=== PATIENT | female | born 1955 | race Caucasian/White ===

== ENCOUNTER → 2018-10-20 16:05 | Outpatient (CLI) | payer OTHER, SELFPAY ==
[2018-10-25 14:49] LABS: Anti-Scleroderma-70 AB 0.5 AI (0.0-0.9)
== END ==
PROVIDERS: Family Provider Internal Medicine Rheumatology; PCP Internal Medicine Rheumatology; Referring Provider Family Medicine; Visit Provider Family Medicine
DX: R76.0 Raised antibody titer (principal)
CPT/HCPCS: 36415; 86235

== ENCOUNTER → 2020-08-28 14:41 | Outpatient (CLI) | payer OTHER, SELFPAY ==
--- NOTE | 2020-08-28 14:49 | CT_ITS ---
STUDY: CT MAXILLOFACIAL SINUSES REASON FOR EXAM: Female, 64 years old. FACIAL PAIN RADIATION DOSAGE (If Supplied By Facility): CTDIvol = ( 33.06 ) mGy, DLP = ( 796.66 ) mGycm TECHNIQUE: The patient was scanned in a multi detector CT scanner. High resolution axial imaging was performed without the administration of intravenous contrast material. Sagittal and coronal images were reconstructed. Individualized dose optimization techniques were used for this CT. COMPARISON: None. FINDINGS: FRONTAL SINUSES: Normal aeration, without mucosal inflammatory disease. ETHMOIDAL SINUSES: Normal aeration, without mucosal inflammatory disease. MAXILLARY SINUSES: Mild degree of nodular mucosal thickening at the base of the right maxillary sinus. Minimal mucosal thickening along the medial wall of the left maxillary sinus. SPHENOIDAL SINUSES: Normal aeration, without mucosal inflammatory disease. There is patency of the bilateral maxillary infundibuli with normal uncinate processes, ethmoid bullae, and hiatus semilunaris. Normal bilateral middle turbinates. There is hypertrophy of the left inferior nasal turbinate. Normal midline nasal septum. There is patency of the bilateral nasal airways. The visualized osseous structures are normal. The visualized bilateral orbital contents are normal. CT/Sinus/Facial Bone IMPRESSION: Mild mucosal thickening of the maxillary sinuses bilaterally as described. Hypertrophy of the inferior turbinate in the left nasal fossa. Electronically Signed: John Gabriel MD at 9:59 EDT , Service support ,
== END ==
PROVIDERS: PCP Family Medicine; Referring Provider Otolaryngology; Visit Provider Otolaryngology
DX: J32.9 Chronic sinusitis, unspecified (principal); R51.9 Headache, unspecified
CPT/HCPCS: 70486

== ENCOUNTER 2020-12-21 08:03 | Day surgery (SDC) | payer OTHER, SELFPAY ==
[2020-12-21] VITALS (7 sets, daily range): BP systolic 123–159; BP diastolic 71–89; PULSE 75–100; RESP 16–18; TEMP 36.1–37; O2SAT 95–100; BMI 30.6
--- NOTE | 2020-12-21 08:38 | HP.PCM_ITS ---
History and Physical Date of Admission: 12/21/20 Intake Vital Signs 12/12/20 09:47 12/12/20 09:51 Height 5 ft 1.25 in Weight: 172 lb 2 oz BMI 32.2 30.0 BP 164/83 H Blood Pressure Location Rt brachial Position Sitting Respiration 18 Pulse 78 Pulse Source NIBP Temp 97.8 F Temp Source Temporal Pulse Oximetry (%) 98 Oxygen Delivery Method room air Intake Visit Reasons: SEEN DEC 2019/DIDN'T GET C-SCOPE BECAUSE OF COVID Chief Complaint: GERD/ screening Platform Operations Director Required: No Is patient in pain?: No Allergies No Known Allergies Allergy (Verified 12/12/20 09:48) Medications furosemide 20 mg tablet 20 mg PO DAILY tab 12/29/19 [History Confirmed 12/12/20] multivitamin 1 tab PO DAILY 12/29/19 [History Confirmed 12/12/20] omeprazole 40 mg capsule,delayed release cap PO 12/29/19 [History Confirmed 12/12/20] vitamin B complex 1 cap PO DAILY 12/29/19 [History Confirmed 12/12/20] bupropion HCl 150 mg 24 hr tablet, extended release 150 mg PO DAILY tab 12/12/20 [History Confirmed 12/12/20] caffeine 200 mg tablet 200 mg PO DAILY tab 12/12/20 [History Confirmed 12/12/20] hawthorn 500 mg capsule mg PO 12/12/20 [History Confirmed 12/12/20] loratadine 10 mg tablet 10 mg PO DAILY 12/12/20 [History Confirmed 12/12/20] triamcinolone acetonide 55 mcg nasal spray aerosol 2 spray INTRANASAL DAILY 12/12/20 [History Confirmed 12/12/20] Is last menstrual period known: No Post menopausal: Yes Patient : No REPLACED BY [facility] Medical History (Updated 12/12/20 @ 09:[address] Zechariah Norman MD) Back pain Depression GERD (gastroesophageal reflux disease) Headache HTN (hypertension) Osteoarthritis Osteopenia Scoliosis Surgical History History of arthroplasty of left ankle History of bladder repair surgery History of nasal septoplasty History of tubal ligation Family History Father No problems noted. Social History Smoking Status: Never smoker HPI HPI HPI: FIDENCIO LOPEZ, is a 65 F who presents to the office today for EGD and colonoscopy. The patient reports that she has been having some food sticking in the lower chest. She says this happen occasionally with meat. She has longstanding GERD and is on a PPI. Patient is also in need of screening colonoscopy. ROS General General: No weight change, appetite, fatigue, colon cancer, breast cancer or weakness HEENT HEENT: Yes difficulty swallowing; No eye injury, eye surgery, swollen glands or hoarseness Endo Endocrine: No thyroid disease, diabetes mellitus, thyroid cancer, Hair loss, heat intolerance or cold intolerance Musc Musculoskeletal: Yes back problems and arthritis; No rheumatoid arthritis, gout or joint pain Cardio Cardiovascular: Yes high blood pressure; No murmur, pacemaker, heart disease, atrial fibrillation, heart attack, heart stent, palpitations, shortness of breat with exertion or chest pain Psych Psychiatric: Yes depression; No anxiety or hearing voices Resp Respiratory: No shortness of breath, No sleep apnea, No cough, No COPD, No asthma, No emphysema and No wheezing Gastro Gastrointestinal: Yes abdominal pain, No nausea or vomiting, No diarrhea, No constipation, No blood in stool, Yes acid reflux, No hemorrhoids, No ulcers, No gallbladder problem and No black,tarry stools Luciano Hematologic: No blood thinners, No blood disorders, No bleeding, No anemia and No blood clots Neuro Neurologic: No weakness Exam Const General: cooperative Orientation: alert and oriented x3 HENMT Head: normal to inspection Neck Neck: normal visual inspection and full ROM Chest Chest palpation & inspection: normal inspection of the chest Resp Effort & Inspection: normal respiratory effort Auscultation: clear to auscultation bilaterally Cardio Rate: regular rate Rhythm: regular rhythm GI Inspection: non-distended Palpation: soft and nontender Skin General: no rashes or lesions noted Neuro General: patient alert and patient oriented x3 Extrem General: full ROM Psych Appearance: grossly normal Mental Status: mental status grossly normal Assessment and Plan Assessment and Plan (1) GERD (gastroesophageal reflux disease): Status: Acute Qualifiers: Esophagitis presence: esophagitis presence not specified Qualified Code(s): K21.9 - Gastro-esophageal reflux disease without esophagitis (2) Dysphagia: Status: Acute Qualifiers: Dysphagia type: esophageal phase Qualified Code(s): R13.19 - Other dysphagia (3) Screen for colon cancer: Status: Acute Orders: Orders: EGD Today K21.9 Colonoscopy Today Z12.11 Plan - Dr. Zechariah Norman MD: Patient is in need of screening colonoscopy. Patient also has been having dysphagia and has longstanding GERD. I explained endoscopy in detail to the patient. I explained the risks including but not limited to stroke or heart attack with anesthesia, perforation of the GI tract, bleeding, infection. I explained that any of these could necessitate further emergency surgery. The patient understands and all questions were answered sufficiently. The patient wishes to proceed with procedure. I also discussed possible dilation of a Schatzki's ring with the patient. I also discussed the increased risk of perforation. Zecharaih Norman MD Pager: [facility] [address] [place] [address], [address] [place] [phone] Office: I have re-examined the patient. There are no clinical changes since date of exam.
[2020-12-21] MEDS: Lactated Ringers 1,000 ML 100 ML IV (08:43)
--- NOTE | 2020-12-21 09:27 | OP.EGD_ITS ---
Patient Name: Zoila Grimaldo Procedure Date: 12/21/2020 8:47 AM Date of : 1955 Age: 65 Procedure: Upper GI endoscopy Indications: Dysphagia Providers: Zechariah Norman MD Medicines: Monitored Anesthesia Care Patient Profile: This is a 65 year old female. Refer to note in patient chart for documentation of history and physical. Complications: No immediate complications. Procedure: Pre-Anesthesia Assessment: - Prior to the procedure, a History and Physical was performed, and patient medications and allergies were reviewed. The patient's tolerance of previous anesthesia was also reviewed. The risks and benefits of the procedure and the sedation options and risks were discussed with the patient. All questions were answered, and informed consent was obtained. Prior Anticoagulants: The patient has taken no previous anticoagulant or antiplatelet agents. After reviewing the risks and benefits, the patient was deemed in satisfactory condition to undergo the procedure. After obtaining informed consent, the endoscope was passed under direct vision. Throughout the procedure, the patient's blood pressure, pulse, and oxygen saturations were monitored continuously. The Endoscope was introduced through the mouth, and advanced to the second part of duodenum. The upper GI endoscopy was accomplished without difficulty. The patient tolerated the procedure well. Scope In: 9:03:59 AM Scope Out: 9:05:54 AM Total Procedure Duration Time 0 hours 1 minute 55 seconds Findings: The esophagus was normal. There was no stenosis at the GE junction The stomach was normal. The examined duodenum was normal. Impression: - Normal esophagus. - Normal stomach. - Normal examined duodenum. - No specimens collected. Recommendation: - Discharge patient to home. - Resume previous diet. - Continue present medications. - Perform ambulatory esophageal manometry if symptoms persist. Procedure Code(s): --- Professional --- 78457, Esophagogastroduodenoscopy, flexible, transoral; diagnostic, including collection of specimen(s) by brushing or washing, when performed (separate procedure) Diagnosis Code(s): --- Professional --- R13.10, Dysphagia, unspecified CPT copyright 2017 [employer]. All rights reserved. The codes documented in this report are preliminary and upon tank truck mechanic review may be revised to meet current compliance requirements. Zechariah Norman MD 12/21/2020 9:26:30 AM This report has been signed electronically. Number of Addenda: 0 Note Initiated On: 12/21/2020 8:47 AM
--- NOTE | 2020-12-21 09:27 | OP.CCLET_ITS ---
12/21/2020 [facility] Re : Upper GI endoscopy procedure for Zoila Vogt This procedure was performed on Monday, December 21, 2020. My impressions and recommendations are as follows: Impressions : - Normal esophagus. - Normal stomach. - Normal examined duodenum. - No specimens collected. Recommendations : - Discharge patient to home. - Resume previous diet. - Continue present medications. - Perform ambulatory esophageal manometry if symptoms persist. My findings are described in the full procedure note, which is enclosed. If I can be of further assistance, please feel free to contact me at Doctor phone number(s): , Work: . Sincerely, Zechariah Norman MD 12/21/2020 9:26:30 AM This report has been signed electronically.
--- NOTE | 2020-12-21 09:28 | OP.CCLET_ITS ---
12/21/2020 [facility] Re : Colonoscopy procedure for Zoila Vogt This procedure was performed on Monday, December 21, 2020. My impressions and recommendations are as follows: Impressions : - The entire examined colon is normal on direct and retroflexion views. - No specimens collected. Recommendations : - Discharge patient to home. - Resume previous diet. - Continue present medications. - Repeat colonoscopy in 10 years for screening purposes. My findings are described in the full procedure note, which is enclosed. If I can be of further assistance, please feel free to contact me at Doctor phone number(s): , Work: . Sincerely, Zechariah Norman MD 12/21/2020 9:27:37 AM This report has been signed electronically.
--- NOTE | 2020-12-21 09:28 | OP.COLON_ITS ---
Patient Name: Zoila Grimaldo Procedure Date: 12/21/2020 9:06 AM Date of : 1955 Age: 65 Procedure: Colonoscopy Indications: Screening for colorectal malignant neoplasm Providers: Zechariah Norman MD Patient Profile: This is a 65 year old female. Refer to note in patient chart for documentation of history and physical. Last Colonoscopy: several years ago. Complications: No immediate complications. Procedure: Pre-Anesthesia Assessment: - Prior to the procedure, a History and Physical was performed, and patient medications and allergies were reviewed. The patient's tolerance of previous anesthesia was also reviewed. The risks and benefits of the procedure and the sedation options and risks were discussed with the patient. All questions were answered, and informed consent was obtained. Prior Anticoagulants: The patient has taken no previous anticoagulant or antiplatelet agents. After reviewing the risks and benefits, the patient was deemed in satisfactory condition to undergo the procedure. After I obtained informed consent, the scope was passed under direct vision. Throughout the procedure, the patient's blood pressure, pulse, and oxygen saturations were monitored continuously. The Colonoscope was introduced through the anus and advanced to the cecum, identified by appendiceal orifice and ileocecal valve. The colonoscopy was performed without difficulty. The patient tolerated the procedure well. The quality of the bowel preparation was good. Scope In: 9:09:03 AM Scope Withdrawal Time 0 hours 5 minutes 25 seconds Scope Out: 9:25:13 AM Total Procedure Duration Time 0 hours 16 minutes 10 seconds Findings: The entire examined colon appeared normal on direct and retroflexion views. Impression: - The entire examined colon is normal on direct and retroflexion views. - No specimens collected. Recommendation: - Discharge patient to home. - Resume previous diet. - Continue present medications. - Repeat colonoscopy in 10 years for screening purposes. Procedure Code(s): --- Professional --- G0121, Colorectal cancer screening; colonoscopy on individual not meeting criteria for high risk Diagnosis Code(s): --- Professional --- Z12.11, Encounter for screening for malignant neoplasm of colon CPT copyright 2017 [employer]. All rights reserved. The codes documented in this report are preliminary and upon emergency medical service manager review may be revised to meet current compliance requirements. Zechariah Norman MD 12/21/2020 9:27:37 AM This report has been signed electronically. Number of Addenda: 0 Note Initiated On: 12/21/2020 9:06 AM
== END 2020-12-21 10:11 ==
LOC: EN 08:05 → AC 08:06
PROVIDERS: PCP Family Medicine; Referring Provider Family Medicine; Visit Provider Surgery
PROC: 0DJD8ZZ Inspection of Lower Intestinal Tract, Via Natural or Artificial Opening Endoscopic (ICD-10-PCS; CPT 45378; principal; 2020-12-21 08:40)
DX: K21.9 Gastro-esophageal reflux disease without esophagitis (principal); I10 Essential (primary) hypertension; R13.19 Other dysphagia
CPT/HCPCS: 43235; 45378; J7120; J2405

== ENCOUNTER → 2021-12-27 | Outpatient (CLI) | payer OTHER, SELFPAY ==
--- NOTE | 2021-12-27 17:48 | MRI_ITS ---
STUDY: MRI BRAIN WITH AND WITHOUT CONTRAST REASON FOR EXAM: Female, 66 years old. CHRONIC H/A TECHNIQUE: Standardized multiplanar fat and water weighted pulse sequences were obtained. IV 15mL CLARISCAN was administered for the contrast portion of the examination. COMPARISON: None. FINDINGS: Normal size of the ventricles and extra-axial spaces for the patient''s age. Mild periventricular white matter ischemic change without mass effect or restricted diffusion.. There is also focal gliosis in the right posterior frontal region also likely due to chronic ischemic changes. Normal bilateral basal ganglia. Normal thalami. There is no extra-axial fluid accumulation. Normal flow voids within the major intracranial circulation suggesting patency by spin echo criteria. Normal venous enhancement. There is no enhancing intra-axial or extra-axial abnormality. Normal sella turcica, pituitary gland, infundibular stalk, optic chiasm and hypothalamus. Normal tectal plate and pineal gland. Normal midbrain, evon and medulla. Normal cerebellum. Normal basal cisterns. Normal bilateral temporal bones. Normal bilateral internal auditory canals. No demonstrated orbital abnormality, within the constraints of a routine brain study. Normal visualized paranasal sinuses. Normal calvarium and skull base. Normal visualized soft tissue structures. Normal visualized upper cervical spine. MRI/Brain W/WO Contrast IMPRESSION: Mild chronic periventricular white matter ischemic change without evidence for acute infarct. No mass or other enhancing lesions following contrast administration Electronically Signed: Javid Solo MD at 19:44 EDT ,
[2021-12-27 18:11] LABS: CREATININE FINGERSTICK < 0.9 mg/dL (0.55-1.02); EGFR FINGERSTICK > 60.0000 mL/min (>60)
== END | disposition home or self-care (01) ==
LOC: MRI 17:30
PROVIDERS: PCP Family Medicine; Visit Provider Psychiatry & Neurology Sleep Medicine
DX: R51.9 Headache, unspecified (principal); G89.29 Other chronic pain; Z82.0 Family history of epilepsy and other diseases of the nervous system
CPT/HCPCS: 70553; A9575

== ENCOUNTER → 2022-02-18 | Outpatient (CLI) | payer OTHER, SELFPAY ==
[2022-02-18 13:32] LABS: Erythrocyte Sedimentation Rate 9 mm/hr (0-30)
== END | disposition home or self-care (01) ==
LOC: LAB 13:11
PROVIDERS: PCP Family Medicine; Referring Provider Psychiatry & Neurology Sleep Medicine; Visit Provider Psychiatry & Neurology Sleep Medicine
DX: R51.9 Headache, unspecified (principal); G89.29 Other chronic pain
CPT/HCPCS: 36415; 85652; 86038

== ENCOUNTER → 2022-05-23 | Outpatient (CLI) | payer OTHER, SELFPAY ==
[2022-05-23 13:41] LABS: Erythrocyte Sedimentation Rate 18 mm/hr (0-30)
[2022-05-23 13:58] LABS: CRP < 2.90 mg/L (0.0-3.0); Rheumatoid Factor < 10.0 IU/mL (<15)
[2022-05-26 13:07] LABS: RNP Ab <0.2 AI (0.0-0.9)
[2022-05-26 13:51] LABS: Smith Ab <0.2 AI (0.0-0.9)
[2022-05-26 15:48] LABS: CCP IgG Antibodies 2 units (0-19)
== END | disposition home or self-care (01) ==
PROVIDERS: PCP Family Medicine
DX: R76.8 Other specified abnormal immunological findings in serum (principal); I73.00 Raynaud's syndrome without gangrene
CPT/HCPCS: 36415; 85652; 86140; 86200; 86235; 86431

== ENCOUNTER → 2022-07-01 | Outpatient (CLI) | payer OTHER, SELFPAY ==
--- NOTE | 2022-07-01 13:35 | BD_ITS ---
STUDY: DUAL ENERGY X-RAY ABSORPTIOMETRY / DXA REASON FOR EXAM: Female, 66 years old. Z780 -- . TECHNIQUE: Bone Mineral Density (BMD) measurements of lumbar spine and bilateral hips were obtained. COMPARISON: Comparison is made with prior study dated July 11, 2014. FINDINGS: Lumbar Spine (L1-L4): g/cm2 (1.000) / T-score (-0.4) / Z-score (1.3) Findings are suggestive of normal bone density with a low fracture risk. Left Femur Total: g/cm2 (0.752) / T-score (-1.6) / Z-score (-0.4) Left Femoral Neck: g/cm2 (0.611) / T-score (-2.1) / Z-score (-0.6) Right Femur Total: g/cm2 (0.682) / T-score (-2.1) / Z-score (-0.9) Right Femoral Neck: g/cm2 (0.579) / T-score (-2.4) / Z-score (-0.9) The T-Scores on the most recent prior examination were: Lumbar Spine (L1-L4): There has been worsening of bone density since the previous examination. Left Femur Total: which represents a worsening of 4%. Right Femur Total: which represents a worsening of 5.1%. BD/Dexa Bone Density Study IMPRESSION: The patient is considered osteopenic as outlined below according to [employer] [place] Organization (WHO) criteria with a high fracture risk. There has been worsening of bone density since the previous examination. Reference Information: The T-score is the number of standard deviations above or below the standard which is normal for young adults at their peak bone mineral density. The World Health Organization (WHO) interprets the T-scores as follows: Above -1 Normal bone density Between -1 and -2.5 Osteopenia Equal to / or below -2.5 Osteoporosis As a practical clinical guideline, osteopenia may be graded as follows: Mild -1 through -1.5 Moderate -1.6 through -2.0 Severe -2.1 through -2.4 The Z-score is the number of standard deviations above or below age-matched controls. A Z-score of less than -1.5 would be considered abnormal. References: 1. NIH Osteoporosis and Related Bone Diseases www osteo.org 2. International Society for Clinical Densitometry www iscd.org 3. National Osteoporosis Foundation www nof.org Electronically Signed: John Gabriel MD at 11:06 EDT ,
== END | disposition home or self-care (01) ==
PROVIDERS: PCP Family Medicine; Visit Provider Family Medicine
DX: M85.80 Other specified disorders of bone density and structure, unspecified site (principal); Z78.0 Asymptomatic menopausal state
CPT/HCPCS: 77080